=== PATIENT | male | born 1990 | race Caucasian/White ===

== ENCOUNTER 2021-10-12 06:28 | Day surgery (SDC) | payer BC, OTHER ==
[2021-10-12] MEDS ORDERED: Bupivacaine 0.5% 50 ML MDV ONE (06:51)
[2021-10-12] MEDS ORDERED: Lidocaine 1% with EPINEPHrine 1:100,000 50 ML MDV ONE (06:51)
[2021-10-12] MEDS ORDERED: Isosulfan Blue 5 ML SDV ONE (07:04)
[2021-10-12] MEDS ORDERED: ceFAZolin 2 GM in Premix Bag 1 BAG IV ONE (07:30)
[2021-10-12] MEDS ORDERED: Acetaminophen 500 MG Tab PO ONE (07:30)
[2021-10-12] MEDS ORDERED: Dextrose 5%-Lactated Ringers 1,000 ML IV SCH (07:30)
[2021-10-12] MEDS ORDERED: fentaNYL 250 MCG/5 ML SDV ONE ×2 (07:44→10:41)
[2021-10-12] MEDS ORDERED: Rocuronium 50 MG/5 ML Vial ONE ×5 (07:45→10:46)
[2021-10-12] MEDS ORDERED: Dexamethasone 4 MG/ML SDV ONE (07:45)
[2021-10-12] MEDS ORDERED: Propofol 200 MG/20 ML SDV ONE (07:45)
[2021-10-12] MEDS ORDERED: Neostigmine Methylsulfate 1 MG/ML 5 ML Syringe ONE (07:45)
[2021-10-12] MEDS ORDERED: Ondansetron 4 MG/2 ML SDV ONE (07:45)
[2021-10-12] MEDS ORDERED: Glycopyrrolate 0.2 MG/ML 5 ML MDV ONE (07:45)
[2021-10-12] MEDS ORDERED: Bupivacaine 0.5%/EPINEPHrine 1:200,000 50 ML MDV ONE (10:41)
== END 2021-10-12 12:50 | disposition home or self-care (01) ==
LOC: JP.SDS 06:28
PROVIDERS: ATTEND Surgery
DX: C43.61 Malignant melanoma of right upper limb, including shoulder (principal); Z88.8 Allergy status to other drugs, medicaments and biological substances
CPT/HCPCS: 36415; 78195; 78195-26; 80053; 83615; 85027; 88307; 88341; 88342; A9270-GY; A9541; J0690; J1100; J2405; J2704; J2710; J3010; J3490; J7121; Q9968